=== PATIENT | male | born 1980 | race Caucasian/White ===

== ENCOUNTER 2017-03-25 10:59 | Outpatient (CLI) | payer OTHER ==
--- NOTE | 2017-03-25 13:48 | MRI Report ---
EXAM: MRI LUMBAR SPINE WITHOUT CONTRAST EXAM DATE: 03/25/2017 11:39 AM. CLINICAL HISTORY: Chronic low back pain. COMPARISON: None. TECHNIQUE: Multiplanar, multisequence T1-weighted and fluid-sensitive sequences of the lumbar spine f rom T12 to S1 without contrast. Other: None. FINDINGS: Spinal Cord: The conus terminates at L1-L2. No signal abnormality in the visualized spinal cord. Alignment: No spondylolysis or spondylolisthesis. Bone Marrow: Five [id number] lumbar vertebral bodies are assumed. Vertebral body heights are antony ntained. No acute marrow edema. Small incidental L1 vertebral body hemangioma. Disk Levels/Facets: T12-L1: Unremarkable. L1-L2: Minimal degenerative disk disease and facet arthropathy. Shallow left posterior paracentral di sk protrusion. Minimal thecal sac indentation. No significant stenosis. L2-L3: Mild disk space dehydration and narrowing. Shallow broad-based bulge. Posterior midline annula r fissure. Unremarkable facets. No stenosis. L3-L4: Minimal diffuse annular disk bulge. No stenosis or focal disk herniation. L4-L5: Mild diffuse disk space dehydration and narrowing. Minimal to mild facet arthropathy. Shallow diffuse annular disk bulge. Midline posterior annular fissure. Minimal foraminal stenosis. Patent monique tral canal. No focal nerve root impingement. L5-S1: Mild disk space dehydration and narrowing. Minimal facet arthropathy. Shallow broad-based post erior disk protrusion. Additional inferiorly migrating right paracentral extradural defect is present consistent with additional disk extrusion, along the anterior margin of the thecal sac and just medi al to the right S1 nerve root sleeve but without evidence for associated stenosis or nerve root impin gement. This lesion extends about 6 mm below the level of the disk space and shows maximal transverse dimensions of about 6 x 5 mm. The neural foramina show minimal to mild stenosis, left greater than r ight, from intraforaminal extension of the shallow broad-based bulge accompanied by osteophytic spurr ing which is most prominent at the level of the left neural foramen, which appears most stenotic thou gh without definitive evidence of nerve root compression. Correlate clinically. Musculature: Normal. No edema or fatty atrophy. Other: None. IMPRESSION: 1. Lumbar degenerative changes are present without evidence for significant stenosis or nerve root co mpression at the L1-L2 through L3-L4 levels. 2. Degenerative changes at the L4-L5 level including posterior disk protrusion with annular fissure b ut no evidence for significant nerve root impingement, foraminal stenosis is minimal. 3. Degenerative disk disease at L5-S1 with posterior disk protrusion and additional superimposed infe riorly migrating right paracentral extrusion but without evidence for significant central stenosis or nerve root compression at the level of the central canal or lateral recesses. At this level, foramin al stenosis is more prominent on the left than on the right as described above. Comment: The following findings are so common in adults without low back pain that while we report th eir presence, they must be interpreted with caution and in the context of the clinical situation. (Re erlin Resendiz et al, Spine 2001) Prevalence of findings in patients without low back pain: Disk degeneration (any evidence): 92% Disk desiccation/T2 signal loss: 83% Disk height loss: 56% Disk bulge: 64% Disk protrusion: 32% Annular tear/high intensity zone: 38% [facility] Referring Provider Line: [phone] SITE ID: [id number]
== END 2017-03-25 11:00 | disposition home or self-care (01) ==
LOC: DI 10:59
PROVIDERS: ATTEND Student in an Organized Health Care Education/Training Program
DX: M51.36 Other intervertebral disc degeneration, lumbar region (principal); M47.896 Other spondylosis, lumbar region; M51.26 Other intervertebral disc displacement, lumbar region; M51.27 Other intervertebral disc displacement, lumbosacral region; M51.37 Other intervertebral disc degeneration, lumbosacral region; M47.897 Other spondylosis, lumbosacral region
CPT/HCPCS: 72148

== ENCOUNTER 2017-04-07 11:22 | Outpatient (CLI) | payer OTHER | END 2017-04-07 11:23 | disposition home or self-care (01) | LOC: SC 11:22 | PROVIDERS: ATTEND Internal Medicine Pulmonary Disease | DX: G47.33 Obstructive sleep apnea (adult) (pediatric) (principal) | CPT/HCPCS: 99203; 99212 ==

== ENCOUNTER 2017-04-17 06:46 | Outpatient (CLI) | payer OTHER | END 2017-04-17 06:47 | disposition home or self-care (01) | LOC: SC 06:46 | PROVIDERS: ATTEND Internal Medicine Pulmonary Disease | DX: G47.33 Obstructive sleep apnea (adult) (pediatric) (principal) | CPT/HCPCS: 80306; 95805 ==

== ENCOUNTER 2017-04-17 07:30 | Outpatient (CLI) | payer OTHER | END 2017-04-17 07:31 | disposition home or self-care (01) | LOC: LAB.R 07:30 | PROVIDERS: ATTEND Internal Medicine Pulmonary Disease | DX: G47.33 Obstructive sleep apnea (adult) (pediatric) (principal) | CPT/HCPCS: 80306 ==